=== PATIENT | male | born 1990 | race African-American/Black ===

== ENCOUNTER 2023-03-05 07:33 | Inpatient (IN) | payer SELFPAY ==
[2023-03-05] MEDS ORDERED: Morphine 4 MG/ML VIAL ONE ×2 (07:40→07:59)
[2023-03-05] MEDS ORDERED: Ondansetron PF 4 MG/2 ML Vial ONE (07:40)
[2023-03-05] MEDS ORDERED: CEFAZOLIN 2 GM VIAL ONE ×2 (07:48→10:41)
[2023-03-05] MEDS ORDERED: Sodium Chloride 0.9% 100 ML ONE ×2 (07:48→10:41)
[2023-03-05] MEDS ORDERED: Boostrix 0.5 ML (Tdap) VIAL (>/=7 yrs of age) ONE (07:59)
[2023-03-05 08:06] LABS: Hematocrit 43.7 % (42.0-52.0); Hemoglobin 14.1 g/dL (14.0-18.0); Manual Diff?? YES; Mean Corpuscular HGB CONC 32.3 g/dL (32.0-36.0); Mean Corpuscular Volume 86.9 fl (78.0-98.0); Mean Platelet Volume 10.9 fL (7.4-10.4); Platelet Count 252 10x3/uL (130-400); RBC Distribution Width 14.6 % (11.5-14.5); Red Blood Cell (RBC) Count 5.03 mill/uL (4.70-6.10); White Blood Cell (WBC) Count 10.3 10x3/uL (4.8-10.8)
[2023-03-05 08:13] LABS: Delete Auto Diff?? YES
[2023-03-05] MEDS ORDERED: Ketamine In 0.9 % NaCl 50 MG/5 ML SYRINGE ONE (08:25)
[2023-03-05 08:34] LABS: ALT (SGPT) 29 U/L (8-55); AST (SGOT) 36 U/L (5-34); Albumin 5.2 g/dL (3.5-5.0); Alkaline Phosphatase 82 U/L (40-110); Anion Gap 18 mmol/L (10-20); BUN (Urea Nitrogen) 13 mg/dL (8.9-20.6); Bilirubin, Total 0.7 mg/dL (0.2-1.2); Calc. Creatinine Clearance 0 mL/min (70-130); Carbon Dioxide 22 mmol/L (22-29); Chloride 101 mmol/L (98-107); Eosinophils 3 % (0-10); Estimated GFR 65; Globulin 3.6 g/dL (2.4-3.5); Glucose 158 mg/dL (70-105); Lymphocytes 47 % (21-51); Monocytes 4 % (0-10); Neutrophil 45 % (42-75); Polychromasia SLIGHT = 2-3 cells (100X) (0-2/hpf); Potassium 3.4 mmol/L (3.5-5.1); Protein, Total 8.8 g/dL (6.0-8.3); Reactive Lymphocytes 1 % (0-10); Sodium 138 mmol/L (136-145)
[2023-03-05 08:35] LABS: Platelet Adequacy Comment Platelets Normal
[2023-03-05] MEDS ORDERED: traMADol HCl 50 MG TAB PO PRN ×2 (08:35)
[2023-03-05] MEDS ORDERED: Glucagon 1 MG/ML KIT IM PRN (08:35)
[2023-03-05] MEDS ORDERED: Dextrose 5% in Water 1,000 ML IV PRN (08:35)
[2023-03-05] MEDS ORDERED: Dextrose 50% Abboject 50 ML SYRINGE SLOW IVP PRN (08:35)
[2023-03-05] MEDS ORDERED: Acetaminophen 325 MG TAB PO PRN (08:35)
[2023-03-05] MEDS ORDERED: Ondansetron PF 4 MG/2 ML Vial IVP PRN (08:35)
[2023-03-05] MEDS ORDERED: Ondansetron ODT 4 MG TAB PO PRN (08:35)
[2023-03-05] MEDS ORDERED: CEFAZOLIN 2 GM in Sodium Chloride 0.9% 100 ML IVPB SCH (09:15)
[2023-03-05] MEDS ORDERED: HYDROmorphone 0.5 MG/0.5 ML SYRINGE ONE ×2 (09:59→10:12)
[2023-03-05] MEDS ORDERED: Ipratropium/Albuterol 3 ML NEB ONE (10:06)
[2023-03-05] MEDS ORDERED: Dexmedetomidine 200 MCG/2 ML VIAL ONE (10:35)
[2023-03-05] MEDS ORDERED: fentaNYL PF 100 MCG/2 ML SYRINGE ONE (10:35)
[2023-03-05] MEDS ORDERED: PROPOFOL 40 ML ONE (10:35)
[2023-03-05] MEDS ORDERED: HYDROmorphone 2 MG/ML VIAL ONE (10:36)
[2023-03-05] MEDS ORDERED: Sodium Chloride 0.9% 250 ML 500 ML ONE (10:40)
[2023-03-05] MEDS ORDERED: Succinylcholine 200 MG/10 ml SYRINGE FS ONE (10:53)
[2023-03-05] MEDS ORDERED: Esmolol 100 MG/10 ML VIAL ONE (11:20)
[2023-03-05] MEDS ORDERED: Ketorolac Tromethamine 30 MG (1 mL) VIAL ONE (12:28)
[2023-03-05] MEDS ORDERED: Lidocaine 2% PF 5 ML VIAL ONE (12:29)
[2023-03-05] MEDS ORDERED: Lidocaine 1% PF 5 ML VIAL ONE (12:30)
[2023-03-05] MEDS ORDERED: fentaNYL 50 mcg/mL 1 mL Vial ONE (14:58)
[2023-03-05 17:33] VITALS: BMI 31.3
[2023-03-05] MEDS: CEFAZOLIN 2 GM in Sodium Chloride 0.9% 100 ML IVPB SCH (19:43)
[2023-03-05] MEDS: Morphine 2 MG/ML VIAL SLOW IVP PRN (19:50)
[2023-03-06] MEDS: CEFAZOLIN 2 GM in Sodium Chloride 0.9% 100 ML IVPB SCH (04:00)
[2023-03-06] MEDS: Morphine 2 MG/ML VIAL SLOW IVP PRN ×5 (04:09→20:11)
[2023-03-06 05:12] LABS: #Monocytes 1.3 thou/uL (0.11-0.59); #Neutrophils 11.3 thou/uL (1.40-6.50); %Basophils 0.1 % (0.0-1.0); %Eosinophils 0.1 % (0.0-10.0); %Lymphocytes 10.8 % (21.0-51.0); %Monocytes 9.3 % (0.0-10.0); %Neutrophils 79.2 % (42.0-75.0); Mean Corpuscular HGB CONC 33.4 g/dL (32.0-36.0); Mean Corpuscular Hemoglobin 29.1 pg (27.0-31.0); Mean Platelet Volume 11.6 fL (7.4-10.4); Platelet Count 171 10x3/uL (130-400); RBC Distribution Width 14.6 % (11.5-14.5); Red Blood Cell (RBC) Count 3.54 mill/uL (4.70-6.10); White Blood Cell (WBC) Count 14.2 10x3/uL (4.8-10.8)
[2023-03-06 05:23] LABS: Hematocrit 30.8 % (42.0-52.0); Hemoglobin 10.3 g/dL (14.0-18.0)
[2023-03-06 05:43] LABS: Anion Gap 12 mmol/L (10-20); BUN (Urea Nitrogen) 11 mg/dL (8.9-20.6); Calc. Creatinine Clearance 127 mL/min (70-130); Calcium 8.4 mg/dL (7.8-10.44); Carbon Dioxide 24 mmol/L (22-29); Chloride 105 mmol/L (98-107); Estimated GFR 95; Glucose 105 mg/dL (70-105); Sodium 137 mmol/L (136-145)
[2023-03-06] MEDS: HYDROcodone/Acetaminophen 7.5/325 mg Tablet PO PRN ×3 (06:36→18:48)
[2023-03-06] MEDS ORDERED: traMADol HCl 50 MG TAB PO PRN (18:57)
[2023-03-06] MEDS ORDERED: Methocarbamol 500 MG TAB PO PRN (18:58)
[2023-03-07] MEDS: Morphine 2 MG/ML VIAL SLOW IVP PRN (03:31)
[2023-03-07] MEDS: HYDROcodone/Acetaminophen 7.5/325 mg Tablet PO PRN (06:04)
[2023-03-07] MEDS ORDERED: Vancomycin 1 GM VIAL ONE (07:29)
[2023-03-07] MEDS ORDERED: Dexmedetomidine 200 MCG/2 ML VIAL ONE (07:37)
[2023-03-07] MEDS ORDERED: Ondansetron PF 4 MG/2 ML Vial ONE (07:37)
[2023-03-07] MEDS ORDERED: Dexamethasone 4 mg/ml Vial ONE (07:37)
[2023-03-07] MEDS ORDERED: Lidocaine 2% 6 ML (Jelly) SYR ONE (07:37)
[2023-03-07] MEDS ORDERED: PROPOFOL 20 ML ONE ×2 (07:38)
[2023-03-07] MEDS ORDERED: fentaNYL PF 100 MCG/2 ML SYRINGE ONE ×2 (07:38→09:15)
[2023-03-07] MEDS ORDERED: Lidocaine 1% PF 5 ML VIAL ONE (07:38)
[2023-03-07] MEDS ORDERED: fentaNYL 50 mcg/mL 1 mL Vial ONE (07:54)
[2023-03-07] MEDS ORDERED: CEFAZOLIN 1 GM VIAL ONE (08:14)
[2023-03-07] MEDS ORDERED: Sodium Chloride 0.9% 100 ML ONE (08:14)
[2023-03-07] MEDS ORDERED: Promethazine HCl 25 MG/ML VIAL IM PRN (09:16)
[2023-03-07] MEDS ORDERED: PACU-Morphine 4MG/ML VIAL SLOW IVP PRN (09:16)
[2023-03-07] MEDS ORDERED: Ondansetron HCl/PF 4 MG/2 ML Vial IVP PRN (09:16)
[2023-03-07] MEDS ORDERED: HYDROmorphone 2 MG/ML VIAL SLOW IVP PRN (09:16)
[2023-03-07] MEDS ORDERED: HYDROmorphone 0.5 MG/0.5 ML SYRINGE ONE ×2 (09:32→09:52)
[2023-03-07] MEDS ORDERED: Morphine 4 MG/ML VIAL ONE (10:05)
[2023-03-07 11:14] LABS: #Eosinphils 0.1 thou/uL (0.0-0.7); #Monocytes 0.6 thou/uL (0.11-0.59); #Neutrophils 6.3 thou/uL (1.40-6.50); %Basophils 0.2 % (0.0-1.0); %Eosinophils 0.6 % (0.0-10.0); %Lymphocytes 13.9 % (21.0-51.0); %Monocytes 7.9 % (0.0-10.0); Hematocrit 32.5 % (42.0-52.0); Hemoglobin 10.4 g/dL (14.0-18.0); Mean Corpuscular Hemoglobin 28.7 pg (27.0-31.0); Mean Corpuscular Volume 89.5 fl (78.0-98.0); Mean Platelet Volume 11.2 fL (7.4-10.4); Platelet Count 172 10x3/uL (130-400); RBC Distribution Width 14.8 % (11.5-14.5); Red Blood Cell (RBC) Count 3.63 mill/uL (4.70-6.10); White Blood Cell (WBC) Count 8.1 10x3/uL (4.8-10.8)
[2023-03-07 15:09] LABS: ALT (SGPT) 30 U/L (8-55); AST (SGOT) 90 U/L (5-34); Alkaline Phosphatase 58 U/L (40-110); Anion Gap 11 mmol/L (10-20); BUN (Urea Nitrogen) 9 mg/dL (8.9-20.6); Bilirubin, Total 0.8 mg/dL (0.2-1.2); Calc. Creatinine Clearance 130 mL/min (70-130); Carbon Dioxide 28 mmol/L (22-29); Chloride 104 mmol/L (98-107); Estimated GFR 97; Glucose 95 mg/dL (70-105); Potassium 4.3 mmol/L (3.5-5.1); Sodium 139 mmol/L (136-145)
[2023-03-07 16:11] VITALS: BP 142/87; TEMP 98.7
[2023-03-07] MEDS ORDERED: CEFAZOLIN 2 GM in Sodium Chloride 0.9% 100 ML IVPB SCH (17:00)
== END 2023-03-07 18:01 | disposition home or self-care (01) | DRG 502 ==
LOC: ERS 07:33 → SDC 09:57 → SJJU 17:14
PROVIDERS: ADMIT Surgery; ATTEND Surgery
PROC: 0KNB0ZZ Release Left Lower Arm and Wrist Muscle, Open Approach (ICD-10-PCS; principal; 2023-03-05)
PROC: 0PSJ04Z Reposition Left Radius with Internal Fixation Device, Open Approach (ICD-10-PCS; 2023-03-05)
PROC: 0PSL04Z Reposition Left Ulna with Internal Fixation Device, Open Approach (ICD-10-PCS; 2023-03-05)
PROC: 0HBEXZZ Excision of Left Lower Arm Skin, External Approach (ICD-10-PCS; 2023-03-07)
DX: S52.202B Unspecified fracture of shaft of left ulna, initial encounter for open fracture type I or II (principal); S52.302B Unspecified fracture of shaft of left radius, initial encounter for open fracture type I or II; S47.2XXA Crushing injury of left shoulder and upper arm, initial encounter; F17.210 Nicotine dependence, cigarettes, uncomplicated; F10.90 Alcohol use, unspecified, uncomplicated; W31.9XXA Contact with unspecified machinery, initial encounter
CPT/HCPCS: 36415; 80048; 80053; 85025; 86850; 86900; 86901; 90471; 90715; 96365; 96367; 96375; 99292; C1713; C1874; G0390; J0690; J1100; J1170; J1885; J2001; J2270; J2272; J2405; J2704; J3010; J3370; J3490; J7050; J7620